=== PATIENT | male | born 1970 | race Caucasian/White ===

== ENCOUNTER 2021-08-17 01:16 | Inpatient (IN) | payer BC, SELFPAY ==
[~2021-08-17] VITALS: Ht 170.2 cm; Wt 85.8 kg
[2021-08-17 01:20] VITALS: BP_SYST 137
--- NOTE | 2021-08-17 01:28 | NUR ---
STAT EKG at [facility].
--- NOTE | 2021-08-17 01:38 | NUR ---
DR. BALLARD AT BEDSIDE FOR EVALUATION.
[2021-08-17] MEDS ORDERED: ASPIRIN 81 MG TAB.CHEW PO ONE (01:45)
--- NOTE | 2021-08-17 01:45 | NUR ---
LAB AT BEDSIDE FOR BLOOD DRAW.
[2021-08-17 02:22] LABS: BASOPHILS # (AUTO) 0.1 K/uL (0.0-0.2); BASOPHILS % (AUTO) 1.1 % (0.0-2.0); EOSINOPHILS # (AUTO) 0.1 K/uL (0.0-0.4); EOSINOPHILS % (AUTO) 1.6 % (0.0-4.0); HEMATOCRIT 43.1 % (36-54); HEMOGLOBIN 15.3 g/dL (14.0-18.0); LYMPHOCYTES % (AUTO) 32.2 % (20.5-51.5); MEAN CORPUSCULAR HEMOGLOBIN 30 pg (27-31); MEAN CORPUSCULAR HGB CONC 36 % (32-36); MEAN CORPUSCULAR VOLUME 85 fL (79.0-98.0); MONOCYTES # (AUTO) 0.5 K/uL (0.0-1.0); MONOCYTES % (AUTO) 8.2 % (1.7-9.3); NEUTROPHILS # (AUTO) 3.6 K/uL (1.8-7.7); NEUTROPHILS % (AUTO) 56.9 % (40.0-70.0); PLATELET COUNT (AUTO) 183 K/uL (130-430); RED BLOOD CELL COUNT(AUTO) 5.06 MIL/uL (4.2-6.2); RED CELL DISTRIBUTION WIDTH 13.7 % (9.0-15.0); WHITE BLOOD COUNT (AUTO) 6.3 K/uL (4.8-10.8)
--- NOTE | 2021-08-17 02:23 | NUR ---
PORTABLE XRAY DONE AT BEDSIDE.
--- NOTE | 2021-08-17 02:54 | NUR ---
PATIENT AAOX4 BIB SQ 61 C/O SUBSTERNAL CHEST PAIN THAT AWOKE HIM UP FROM SLEEP. PT STATED HAVING THIS FEELING BEFORE BUT WORSENING. WAS GIVEN ASA 324 AND NITRO 0/4 X2 ON SCENE BY EMS. ARRIVED WITH 18 GAUGE IV TO LEFT AC. FLUSHES WITHOUT DIFFICULTIES AND GOOD BLOOD RETURN. VSS. DENIES ANY SOB, N/V/D. HX OF HTN AND HIGH CHOLESTEROL.
--- NOTE | 2021-08-17 03:23 | NUR ---
Patient will be admitted to care of [facility]. Admitted to TELE unit. PENDING BED ASSIGNMENT. Belongings list completed. Complete and up to date summary report printed. SBAR report to be given at bedside with opportunity for questions.
--- NOTE | 2021-08-17 03:40 | NUR ---
COVID SWAB COLLECTED AND SENT TO LAB.
[2021-08-17] MEDS ORDERED: MORPHINE 4 MG INJ. 4 MG/ML VIAL IVP ONE (03:45)
[2021-08-17] MEDS ORDERED: AMLO5TAB4 PO (03:48)
[2021-08-17] MEDS ORDERED: PRAV10TA37 PO (03:48)
--- NOTE | 2021-08-17 03:48 | NUR ---
Medication reconciliation completed with information provided by PATIENT . Any prior medication reconciliation on file was reviewed and corrected.
[2021-08-17 04:58] LABS: BARBITURATE, URINE NEGATIVE (NEG <=200); BENZODIAZEPINE, URINE NEGATIVE (NEG <=150); CANNABINOID, URINE NEGATIVE (NEG <=50); COCAINE, URINE NEGATIVE (NEG <=150); METHAMPHETAMINES SCREEN,URINE NEGATIVE (NEG <=500); OPIATE, URINE NEGATIVE (NEG <=100); PHENCYCLIDINE SCREEN,URINE NEGATIVE (NEG <=25); UR TRICYCLIC ANTIDEPRESSANTS NEGATIVE (NEG <=300); URINE AMPHETAMINE NEGATIVE (NEG <=500); URINE METHADONE NEGATIVE (NEG <=200); URINE OXYCODONE SCREEN NEGATIVE (NEG <=100); URINE PROPOXYPHENE SCREEN NEGATIVE (NEG <=300)
--- NOTE | 2021-08-17 07:08 | NUR ---
REPORT GIVEN TO ROSALES MCMAHON TO ASSUME ALL CARE.
--- NOTE | 2021-08-17 07:36 | NUR ---
EASILY AROUSED, NORMOTENSIVE, SB ON MONITOR, DENIES CP/SOB. SKIN WARM AND DRY.
--- NOTE | 2021-08-17 09:15 | NUR ---
RESP UNLABORED, SB ON MONITOR NO ECTOPY, DENIES CP/SOB
--- NOTE | 2021-08-17 10:26 | NUR ---
SPOKE WITH DAVE REGARDING POTASSIUM LEVEL. ORDERS RECEIVED
[2021-08-17] MEDS ORDERED: KCL 20 mEq in 100 mL (PREMIX) 200 ML IV ONE (10:46)
[2021-08-17] MEDS: KCL 20 mEq in 100 mL (PREMIX) 100 ML IV SCH ×2 (12:12→13:15)
--- NOTE | 2021-08-17 12:18 | NUR ---
SITTING UP WATCHING TV, PT PLACED ON HOSPITAL BED. NO DISTRESS, STAEDY GAIT, NO DYSPNEA
--- NOTE | 2021-08-17 13:12 | NUR ---
U;TRASOUND COPLETED . AT BEDSIDE. TOLERATING PO WELL. NO CONCERNS
--- NOTE | 2021-08-17 14:42 | NUR ---
SR ON MONITOR NO ECTOPY, DENIES CP/SOB. MEAL PROVIDED
[2021-08-17 17:35] LABS: CALCIUM 8.3 mg/dL (8.4-11.0); CREATININE 1.3 mg/dL (0.55-1.30); POTASSIUM 2.8 mmol/L (3.5-5.1); TOTAL BILIRUBIN 0.4 mg/dL (0.0-1.0)
[2021-08-17 17:36] LABS: ALBUMIN 3.6 g/dL (3.4-4.8)
--- NOTE | 2021-08-17 19:08 | NUR ---
Received report from ROSALES Ramesh and continue care of patient.
--- NOTE | 2021-08-17 19:08 | NUR ---
Received report from ROSALES Ramesh and continue care of patient.
--- NOTE | 2021-08-17 21:14 | NUR ---
Patient will be admitted to care of . Admitted to TELE unit. Will go to room 116B. Belongings list completed. Complete and up to date summary report printed. SBAR report to be given at bedside with opportunity for questions.
--- NOTE | 2021-08-17 21:54 | NUR ---
2119 Late entry due to patient care ADMISSION NOTE Received patient from ER via gurney. Patient admitted with diagnosis of Chest Pain. Patient is awake, alert, oriented X 4. Patient oriented to hospital room, call light, toileting, pain management and safety-teach back done. Patient informed that ROSALES Persaud will be primary nurse and that their room number is 116A. Personal belongings checked and Belongings List documented. Call light within reach.
--- NOTE | 2021-08-17 22:30 | NUR ---
NOTES: took over care from nurse Nichole.
--- NOTE | 2021-08-18 00:15 | NUR ---
NOTES: checked pt. and sleeping. cardia pattern shows sinus clay cardia. low 50's. pt. atmptomatic.
--- NOTE | 2021-08-18 03:00 | NUR ---
NOTES: leads came off. pt. sleeping. no complaints when awakened. continue to monitor.
--- NOTE | 2021-08-18 06:37 | NUR ---
CLOSING NOTES; pt. been sleeping since admission. IV lock intact. denies any chest pain. for further care and assist. call light within reach. will endorse to incomin shift. bed in low position.
--- NOTE | 2021-08-18 08:00 | NUR ---
OPENING NOTES AWAKE AND ORIENTED. DENIES ANY CHEST PAIN. NO SHORTNESS OF BREATH ON ROOM AIR. PLAN OF CARE EXPLAINED TO PATIENT AND HE VERBALIZED UNDERSTANDING. SAFETY CHECKS DONE. CALL LIGHT WITHIN REACH. SERVED WITH BREAKFAST. WILL MONITOR.
[2021-08-18 08:30] VITALS: BP_SYST 116
[2021-08-18] MEDS ORDERED: ASPIRIN 81 MG TAB.CHEW PO SCH (09:00)
[2021-08-18] MEDS ORDERED: ATORVASTATIN 20 MG TABLET PO SCH (09:00)
--- NOTE | 2021-08-18 09:00 | NUR ---
MED PASS PATIENT WAS ABLE TO TAKE ALL MEDS WELL. EXPLAINED THE USE OF ATORVASTATIN.
[2021-08-18] MEDS ORDERED: POTASSIUM CHLORIDE 20 MEQ TAB.PRT.SR PO ONE (09:30)
--- NOTE | 2021-08-18 11:10 | NUR ---
POTASSIUM REPLACEMENT EXPLAINED TO PATIENT THAT HIS BLOOD POTASSIUM LEVEL WAS LOW AND WOULD NEED REPLACEMENT. PATIENT VERBALIZED UNDERSTANDING. POTASSIUM REPLACEMENTS ADMINISTERED ORDERED.
[2021-08-18] MEDS ORDERED: ASA81 PO (13:50)
[2021-08-18] MEDS ORDERED: LIP20 PO (13:50)
[2021-08-18 16:00] VITALS: BP_SYST 118
[2021-08-18 16:55] VITALS: BP_SYST 118
--- NOTE | 2021-08-18 17:20 | NUR ---
D/C Patient Patient given medication reconciliation form and D/C instructions. Exit Care provided. Patient verbalized understanding. MD discussed with patient the results and treatment provided. Ambulatory with steady gait for discharge to home. Patient in stable condition, ID band removed. IV catheter removed, intact and dressing applied, no active bleeding. Rx of Aspirin and Atorvastatin given. Patient educated on pain management. All belongings sent with patient.
== END 2021-08-18 17:20 | disposition home or self-care (01) | DRG 313 ==
LOC: SED 01:16 → STU 03:22
PROVIDERS: ADMIT Preventive Medicine Preventive Medicine/Occupational Environmental Medicine; ATTEND Preventive Medicine Preventive Medicine/Occupational Environmental Medicine
DX: R07.89 Other chest pain (principal); E66.3 Overweight; E78.5 Hyperlipidemia, unspecified; E83.52 Hypercalcemia; I11.9 Hypertensive heart disease without heart failure; E87.6 Hypokalemia; R73.9 Hyperglycemia, unspecified; Z20.822 Contact with and (suspected) exposure to COVID-19; Z68.29 Body mass index [BMI] 29.0-29.9, adult; Z79.899 Other long term (current) drug therapy; Z82.49 Family history of ischemic heart disease and other diseases of the circulatory system
CPT/HCPCS: 36415; 71045; 80053; 80307; 82550; 83880; 84484; 85025; 85379; 93005; 93306; 96365; 96366; 99285; G0378; J2270; J3480